=== PATIENT | male | born 1970 | race Caucasian/White ===

== ENCOUNTER 2017-10-18 00:10 | Emergency (ER) | payer SELFPAY ==
[2017-10-18] MEDS ORDERED: PROPARACAINE HCL OPTH 15ML BTL OPTH ONE (00:25)
[2017-10-18] MEDS ORDERED: HYDROCODONE/APAP 5/325MG TABLET PO ONE (00:33)
[2017-10-18] MEDS ORDERED: GENTAMICIN SULFATE 0.3% OPTH 5 ML BTL OPTH ONE (00:34)
--- NOTE | 2017-10-18 00:39 | Emergency Department Record ---
History of Present Illness - General Chief complaint: Eye Problem Stated complaint: FOREIGN BODY LEFT EYE Time Seen by Provider: 10/18/17 00:21 Source: Patient Mode of Arrival: Ambulatory Limitations: No limitations - History of Present Illness Initial comments: pt was grinding a motor block yesterday and got foreign body in eye which has been increasingly bothersome. chief complaint: Foreign body Onset/Timin -: Days(s) Location: Left eye If Injury: Occurred while hammering/grinding Eye Symptoms: Foreign body sensation Severity scale (1-10): 6 If Pain, Quality: Aching Consistency: Constant Treatments Prior to Arrival: None - Related Data Visual acuity (L) = 20/: 50 Visual acuity (R) = 20/: 50 With correction: No Hx Tetanus Toxoid Vaccination: Yes (2012 [facility]) Year of Tetanus Vaccination: 2012 Previous Rx's Medication Instructions Recorded Hydrocodone/Acetaminophen [[place] 1 each PO Q6HR #10 tablet 10/18/17 5-325 Tablet] Allergies Allergy/AdvReac Type Severity Reaction Status Date / Time amoxicillin trihydrate AdvReac DIARRHEA Verified 09/09/15 06:20 [From Augmentin] potassium clavulanate AdvReac DIARRHEA Verified 09/09/15 06:20 [From Augmentin] [id number] Reductase AdvReac General Verified 09/09/15 06:20 Inhibitor Pain Travel Screening - Travel/Exposure Within Last 30 Days Have you traveled within the last 30 days?: No Review of Systems Reviewed: No additional complaints except as noted below Constitutional: Reports: As per HPI. Denies: Chills, Fever, Malaise, Night sweats, Weakness, Weight change Eyes: Reports: As per HPI, Eye pain, Photophobia, Vision change (vision at baseline after alcaine). Denies: Eye discharge ENT: Reports: As per HPI. Denies: Congestion, Dental pain, Ear pain, Epistaxis , Hearing loss, Throat pain Respiratory: Reports: As per HPI. Denies: Cough, Dyspnea, Hemoptysis, Stridor, Wheezes Cardiovascular: Reports: As per HPI. Denies: Arrhythmia, Chest pain, Dyspnea on exertion, Edema, Murmurs, Orthopnea, Palpitations, Paroxysmal nocturnal dyspnea, Rheumatic Fever, Syncope Endocrine: Reports: As per HPI. Denies: Fatigue, Heat or cold intolerance, Polydipsia, Polyuria Gastrointestinal: Reports: As per HPI. Denies: Abdominal pain, Constipation, Diarrhea, Hematemesis, Hematochezia, Melena, Nausea, Vomiting Genitourinary: Reports: As per HPI. Denies: Dysuria, Frequency, Hematuria, Incontinence, Retention, Testicular pain, Testicular mass, Urgency Musculoskeletal: Reports: As per HPI. Denies: Arthralgia, Back pain, Gout, Joint swelling, Myalgia, Neck pain Skin: Reports: As per HPI. Denies: Bruising, Change in color, Change in hair/ nails, Lesions, Pruritus, Rash Neurological: Reports: As per HPI. Denies: Abnormal gait, Confusion, Headache, Numbness, Paresthesias, Seizure, Tingling, Tremors, Vertigo, Weakness Psychiatric: Reports: As per HPI. Denies: Anxiety, Auditory hallucinations, Depression, Homicidal thoughts, Suicidal thoughts, Visual hallucinations Hematological/Lymphatic: Reports: As per HPI. Denies: Anemia, Blood Clots, Easy bleeding, Easy bruising, Swollen glands Past Medical History - SOCIAL HISTORY Smoking Status: Never smoker Alcohol Use: None Drug Use: None - RESPIRATORY Hx Respiratory Disorders: Yes Hx Asthma: Yes (mild, uses albuterol inh rarely) Hx Pneumonia: Yes (age 8) Hx Sleep Apnea: Yes (does not use his cpap) - CARDIOVASCULAR Hx Cardio Disorders: No Hx Chest Pain: Yes (stress test x 3. Patient states not heart problem) Hx Hypertension: Yes (Running high, not diagnosed) - NEURO Hx Neuro Disorders: No - GI Hx GI Disorders: No - Hx Genitourinary Disorders: Yes Hx Renal Disease: Yes (Stage 3 Kidney Failure) Comment:: Patient states gout nad kidney failure are a combination problem - ENDOCRINE Hx Endocrine Disorders: No - MUSCULOSKELETAL Hx Musculoskeletal Disorders: Yes Hx Arthritis: Yes (r wrist) Hx Gout: Yes (hx feet and ankles) - PSYCH Hx Psych Problems: No - HEMATOLOGY/ONCOLOGY Hx Hematology/Oncology Disorders: No Family Medical History Any Significant Family History?: Yes Hx Diabetes: Father Hx Heart Disease: Grandparents Physical Exam - General General Appearance: Alert, Oriented x3, Cooperative, Mild distress - Head Head exam: Normal inspection - Eye Eye exam: Normal appearance, PERRL, Conjunctival injection, EOMI Pupils: Normal accommodation, Other (flourscein uptake at 7 only. lids everteed , no further fbs) With correction: No Image of Eyes: 1 - fb, after removal remaining rust ring 2 - 2nd smaller fb totally covered w corneal epithelium 3 - corneal abrasion - ENT ENT exam: Normal exam, Mucous membranes moist, Normal external ear exam, Normal orophraynx Ear exam: Normal external inspection. negative: External canal tenderness Nasal Exam: Normal inspection. negative: Discharge, Sinus tenderness Mouth exam: Normal external inspection, Tongue normal Teeth exam: Normal inspection. negative: Dental caries Throat exam: Normal inspection. negative: Tonsillar erythema, Tonsillar exudate - Neck Neck exam: Normal inspection, Full ROM. negative: Tenderness - Respiratory Respiratory exam: Normal lung sounds bilaterally. negative: Respiratory distress - Cardiovascular Cardiovascular Exam: Regular rate, Normal rhythm, Normal heart sounds - GI/Abdominal GI/Abdominal exam: Soft, Normal bowel sounds. negative: Tenderness - Rectal Rectal exam: Deferred - exam: Deferred - Extremities Extremities exam: Normal inspection, Full ROM, Normal capillary refill. negative: Tenderness - Back Back exam: Reports: Normal inspection, Full ROM. Denies: Muscle spasm, Rash noted, Tenderness - Neurological Neurological exam: Alert, CN II-XII intact, Normal gait, Oriented X3 - Psychiatric Psychiatric exam: Normal affect, Normal mood - Skin Skin exam: Dry, Intact, Normal color, Warm Course Vital Signs 10/18/17 00:16 Temperature 98.2 F Pulse Rate [ 86 Pulse Ox Probe] Respiratory 16 Rate Blood Pressure 159/97 [Left Arm] Pulse Ox 95 - Reevaluation(s) Reevaluation #1: 10/18/17 00:42 fbs removed w cotton tipped applicator and tip of needle, remaining rust ring and tiny 2nd fb that has been enveloped w corneal epithelium Disposition Disposition: Discharge Clinical Impression: Corneal rust ring of left eye Corneal foreign body Qualifiers: Encounter type: initial encounter Laterality: left Qualified Code(s): T15.02XA - Foreign body in cornea, left eye, initial encounter Corneal abrasion Qualifiers: Encounter type: initial encounter Laterality: left Qualified Code(s): S05.02XA - Injury of conjunctiva and corneal abrasion without foreign body, left eye, initial encounter Hypertension Qualifiers: Hypertension type: essential hypertension Qualified Code(s): I10 - Essential ( primary) hypertension Disposition: Home, Self-Care Condition: (1) Good Instructions: Eye Foreign Body (ED), Corneal Abrasion (ED), Hypertension (ED) Additional Instructions: follow up with opthamologist today without fail. return sooner if worse. gentamicin drops every 6 hours for 5 days. Prescriptions: Hydrocodone/Acetaminophen [[place] 5-325 Tablet] 1 each PO Q6HR #10 tablet Quality - Quality Measures Quality Measures: N/A - Blood Pressure Screening Does Patient Have Any of the Following: No Blood Pressure Classification: Hypertensive Reading Systolic Measurement: 159 Diastolic Measurement: 97 Screening for High Blood Pressure: < First Hypertensive BP, F/U Documented > [ G8950] First Hypertensive Follow-up Interventions: Follow-up with rescreen GT 1 day and LT 4 weeks.
== END 2017-10-18 01:14 | disposition home or self-care (01) ==
LOC: ER 00:10
DX: T15.02XA Foreign body in cornea, left eye, initial encounter (principal); I12.9 Hypertensive chronic kidney disease with stage 1 through stage 4 chronic kidney disease, or unspecified chronic kidney disease; N18.3 Chronic kidney disease, stage 3 (moderate); W22.8XXA Striking against or struck by other objects, initial encounter; Y93.H3 Activity, building and construction
CPT/HCPCS: 65220; 99283; 99284

== ENCOUNTER 2018-12-11 20:31 | Emergency (ER) | payer SELFPAY ==
--- NOTE | 2018-12-11 20:44 | Emergency Department Record ---
History of Present Illness - General Chief complaint: Pain Stated complaint: RIB PAIN Time Seen by Provider: 12/11/18 20:38 Source: Patient Mode of Arrival: Ambulatory Limitations: No limitations - History of Present Illness Initial comments: 48 yo male presents to ED for evaluation of pain to the left chest that occurred while sneezing several days ago. Patient reports that he coughed this evening resulting in a reoccurrence of his pain symptoms. Patient reports pain with deep inspiration and coughing. Patient denies fevers, chills, or productive cough symptoms. Patient denies health problems other than GOUT. Patient denies lower extremity pain, swelling, or history of DVT. MD Complaint: Other Onset/Timin -: Days(s) History of Same: No Quality: Sharp Consistency: Intermittent Improves with: Nothing Worsens with: Other (Deep breaths) - Related Data Previous Rx's Medication Instructions Recorded Hydrocodone/Acetaminophen [[place] 1 each PO Q6H PRN #15 tablet 12/11/18 7.5-325 Tablet] Allergies Allergy/AdvReac Type Severity Reaction Status Date / Time amoxicillin trihydrate AdvReac DIARRHEA Unverified 04/22/18 18:44 [From Augmentin] NSAIDS (Non-Steroidal AdvReac have gout Verified 12/11/18 20:36 Anti-Inflamma potassium clavulanate AdvReac DIARRHEA Unverified 04/22/18 18:44 [From Augmentin] Mrlielk-Kdr-Uiw Reductase AdvReac General Unverified 04/22/18 18:44 Inhibitor Pain Review of Systems Constitutional: Denies: Chills, Fever, Malaise, Night sweats Eyes: Denies: Eye discharge, Eye pain ENT: Denies: Congestion, Ear pain, Epistaxis Respiratory: Reports: Cough. Denies: Dyspnea, Hemoptysis Cardiovascular: Reports: Chest pain. Denies: Dyspnea on exertion Endocrine: Denies: Fatigue, Heat or cold intolerance Gastrointestinal: Denies: Abdominal pain, Nausea, Vomiting Genitourinary: Denies: Incontinence, Retention Musculoskeletal: Denies: Arthralgia, Back pain Skin: Denies: Bruising, Change in color Neurological: Denies: Abnormal gait, Confusion, Headache, Seizure Psychiatric: Denies: Anxiety Hematological/Lymphatic: Denies: Anemia, Blood Clots Past Medical History - SOCIAL HISTORY Smoking Status: Never smoker Drug Use: None - RESPIRATORY Hx Respiratory Disorders: Yes Hx Asthma: Yes (mild, uses albuterol inh rarely) Hx Pneumonia: Yes (age 8) Hx Sleep Apnea: Yes (does not use his cpap) - CARDIOVASCULAR Hx Cardio Disorders: No Hx Chest Pain: Yes (stress test x 3. Patient states not heart problem) Hx Hypertension: Yes (Running high, not diagnosed) - NEURO Hx Neuro Disorders: No - GI Hx GI Disorders: No - Hx Genitourinary Disorders: Yes Hx Renal Disease: Yes (Stage 3 Kidney Failure) Comment:: Patient states gout nad kidney failure are a combination problem - ENDOCRINE Hx Endocrine Disorders: No - MUSCULOSKELETAL Hx Musculoskeletal Disorders: Yes Hx Arthritis: Yes (r wrist) Hx Gout: Yes (hx feet and ankles) - PSYCH Hx Psych Problems: No - HEMATOLOGY/ONCOLOGY Hx Hematology/Oncology Disorders: No Family Medical History Hx Diabetes: Father Hx Heart Disease: Grandparents Physical Exam - General General Appearance: Alert, Oriented x3, Cooperative, Moderate distress Limitations: No limitations - Head Head exam: Atraumatic, Normocephalic, Normal inspection Head exam detail: negative: Abrasion, Contusion, Chu's sign, General tenderness, Hematoma, Laceration - Eye Eye exam: Normal appearance. negative: Conjunctival injection, Periorbital swelling, Periorbital tenderness, Scleral icterus - ENT Ear exam: negative: Auricular hematoma, Auricular trauma Nasal Exam: negative: Active bleeding, Discharge, Dried blood, Foreign body Mouth exam: negative: Drooling, Laceration, Muffled voice, Tongue elevation - Neck Neck exam: Normal inspection. negative: Meningismus, Tenderness - Respiratory Respiratory exam: Normal lung sounds bilaterally, Chest wall tenderness. negative: Rales, Respiratory distress, Rhonchi - Cardiovascular Cardiovascular Exam: Regular rate, Normal rhythm, Normal heart sounds - GI/Abdominal GI/Abdominal exam: Soft. negative: Rebound, Rigid, Tenderness - Rectal Rectal exam: Deferred - exam: Deferred - Extremities Extremities exam: Normal inspection. negative: Pedal edema, Tenderness - Back Back exam: Denies: CVA tenderness (R), CVA tenderness (L) - Neurological Neurological exam: Alert, Normal gait, Oriented X3 - Psychiatric Psychiatric exam: Normal affect, Normal mood - Skin Skin exam: Normal color. negative: Abrasion Type of lesion: negative: abrasion Course - Reevaluation(s) Reevaluation #1: 12/11/18 20:49 EKG: NSR 89 Normal axis, normal intervals No acute ST-T wave changes are present. Reevaluation #2: 12/11/18 21:31 Labs reviewed and are grossly unremarkable for an acute process except for: BUN 38 Cretinine 1.7 GFR 27 (at baseline per previous records) CT Chest w/o contrast: No acute chest pathology Patient was updated on all results, appears stable for discharge on [place] and Naprosyn as directed. Reevaluation #3: 12/11/18 21:34 Patient was given a prescription for narcotic pain medication as part of the treatment for their acute presentation in the emergency department. Patient was specifically counseled regarding the following: -Risk of overdose -Risk of addiction -Risk of mixing prescribed medication with other home medications ( benzodiazipines, muscle relaxers, alcohol) -Risk of narcotic medication while -Safe disposal of narcotic pain medications -Risk of felony for delivering, sharing, or distributing controlled substances I reviewed the Opiate start talking document with the patient. Patient verbalizes understanding of all risks as described above and all questions were answered. The form was signed following our discussion. Patient appears stable for discharge at this time. Medical Decision Making - Lab Data Result diagrams: 12/11/18 20:05 12/11/18 20:05 Disposition Disposition: Discharge Clinical Impression: Chest wall pain Disposition: Home, Self-Care Condition: (2) Stable Instructions: Chest Wall Pain (ED) Additional Instructions: Return to ED if your symptoms worsen or if you have any concerns. [place] and Naprosyn as directed. Follow-up with your family doctor in 3-5 days as directed. Prescriptions: Hydrocodone/Acetaminophen [[place] 7.5-325 Tablet] 1 each PO Q6H PRN #15 tablet PRN Reason: Pain - Mod To Severe (5-10) Forms: Patient Portal Access Time of Disposition: 21:33 Quality - Quality Measures Quality Measures: N/A - Blood Pressure Screening Does Patient Have Any of the Following: No Blood Pressure Classification: Hypertensive Reading Systolic Measurement: 166 Diastolic Measurement: 109 Screening for High Blood Pressure: < First Hypertensive BP, F/U Documented > [ G8950] First Hypertensive Follow-up Interventions: Referral to alternative/primary care provider.
[2018-12-11 21:01] LABS: BASO % 0.3 % (0-6); EOS % 2.6 % (0-6); GRAN % 70.3 % (47-80); HEMATOCRIT 41.1 % (42.0-52.0); HEMOGLOBIN 13.6 gm/dl (14.0-18.0); LYMPH % 18.3 % (16-45); MEAN CELL VOLUME 84.7 fl (81-97); MEAN CORPUSCULAR HGB CONC 33.1 g/dl (32-36); MONO % 8.5 % (0-9); PLATELET COUNT 317 K/uL (130-400); RED BLOOD COUNT 4.85 M/uL (4.40-5.70); RED CELL DISTRIBUTION WIDTH 13.9 % (11.5-14.5); WHITE BLOOD COUNT W/O DIFF 9.7 K/uL (4.2-12.2)
[2018-12-11 21:13] LABS: BILIRUBIN,TOTAL < 0.20 mg/dL (0.2-1.0); BLOOD UREA NITROGEN 38 mg/dL (6-20); CREATININE 2.7 mg/dL (0.7-1.2); EST GLOMERULAR FILTRATION RATE 27 mL/min
[2018-12-11 21:14] LABS: TOTAL PROTEIN 6.9 g/dL (6.6-8.7)
[2018-12-11 21:16] LABS: GLUCOSE,RANDOM 104 mg/dL (74-109)
[2018-12-11 21:18] LABS: ALT/SGPT 59 U/L (<41)
[2018-12-11 21:19] LABS: ALB/GLOB RATIO 1.3 (1.1-1.8); ALBUMIN 3.9 g/dL (4.0-5.0); ALKALINE PHOSPHATASE 115 U/L (40-129); AST/SGOT 18 U/L (10.0-50.0)
[2018-12-11] MEDS ORDERED: HYDROCODONE/APAP 7.5/325MG TABLET PO ONE (21:44)
--- NOTE | 2018-12-13 14:41 | CT SCAN REPORT ---
EXAM: CT SCAN CHEST WO CONTRAST HISTORY: LEFT RIB PAIN. TECHNIQUE: CT of the thorax performed without intravenous contrast. FINDINGS: There are numerous bilateral lung nodules. The vast majority of these are calcified. These are likely all related to old granulomas, although some are noncalcified and therefore indeterminate. There are nonspecific, nonenlarged mediastinal lymph nodes. Calcified right hilar lymph nodes are present, likely due to old granulomatous disease. No aortic aneurysm identified. There is no pleural or pericardial effusion. The heart is not enlarged. No area of lung mass or consolidation. No pneumothorax. No rib fracture identified. No destructive or blastic bone lesion. Limited upper abdominal images demonstrate diffuse fatty infiltration of the liver. There is severe right renal atrophy. The right kidney is only partially included on this exam. Upper abdomen otherwise unremarkable. IMPRESSION: NO ACUTE THORACIC PROCESS IDENTIFIED. NO RIB FRACTURE SEEN. IF FRACTURE REMAINS OF CONTINUED CLINICAL CONCERN, BONE SCAN MAY BE OF BENEFIT. 2. NUMEROUS BILATERAL LUNG NODULES, THE VAST MAJORITY OF WHICH ARE CALCIFIED, ALL LIKELY DUE TO OLD GRANULOMATOUS DISEASE. 3. DIFFUSE FATTY INFILTRATION OF THE LIVER. 4. ABNORMAL ATROPHIC APPEARANCE OF THE RIGHT KIDNEY. JOB NUMBER: [id number] [facility]
--- NOTE | 2018-12-15 08:26 | CT SCAN REPORT ---
EXAM: CT OF THE THORAX HISTORY: LEFT RIB PAIN. TECHNIQUE: CT of the thorax was performed without intravenous contrast. FINDINGS: There are numerous bilateral lung nodules. The vast majority of these are calcified. These are likely all related to old granulomas although some are noncalcified and therefore indeterminate. There are nonspecific, nonenlarged mediastinal lymph nodes. Calcified right hilar lymph nodes are present likely due to old granulomatous disease. No aortic aneurysm identified. There is no pleural or pericardial effusion. The heart is not enlarged. No area of lung mass or consolidation. No pneumothorax. No rib fracture identified. No destructive or blastic bone lesion. Limited upper abdominal images demonstrate diffuse fatty infiltration of the liver. There is severe right renal atrophy. The right kidney is only partially included on this exam. The upper abdomen is otherwise unremarkable. IMPRESSION: 1. NO ACUTE THORACIC PROCESS IDENTIFIED. NO RIB FRACTURE IS SEEN. IF FRACTURE REMAINS OF CONTINUED CLINICAL CONCERN A BONE SCAN MAY BE OF BENEFIT. 2. NUMEROUS BILATERAL LUNG NODULES, THE VAST MAJORITY OF WHICH ARE CALCIFIED, ALL LIKELY DUE TO OLD GRANULOMATOUS DISEASE. 3. DIFFUSE FATTY INFILTRATION OF THE LIVER. 4. ABNORMAL ATROPHIC APPEARANCE OF THE RIGHT KIDNEY. J[facility]: [id number] [facility]
== END 2018-12-11 22:01 | disposition home or self-care (01) ==
LOC: ER 20:31
DX: R07.89 Other chest pain (principal); N18.3 Chronic kidney disease, stage 3 (moderate)
CPT/HCPCS: 71250; 80053; 85025; 93005; 93010; 99284